=== PATIENT | male | born 1950 | race Caucasian/White ===

== ENCOUNTER 2018-09-06 13:28 | Observation (INO) ==
[2018-09-06 14:05] LABS: Basophils % 0.7 % (0.0-0.8); Eosinophils % 0.5 % (0.00-10.9); Hematocrit 38.1 VOL% (42.0-52.0); Hemoglobin 12.1 GM/DL (14.0-18.0); Immature Granulocytes % 0.2 %; Immature Granulocytes Absolute 0.01 #; Lymphocytes % 22.6 % (21.2-54.2); Mean Corpuscular HGB Conc 31.8 GM/DL (32-36); Mean Corpuscular Hemoglobin 28 PG (27-34); Mean Corpuscular Volume 88.8 FL (87-102); Mean Platelet Volume 11.1 FL (9.6-12.0); Monocytes # 0.5 10*3/uL (0.11-0.8); Monocytes % 10.5 % (1.7-12.7); Neutrophils # 2.9 10*3/uL (1.4-7.4); Neutrophils % 65.5 % (38.7-73.9); Platelet Count 65 T/CUMM (130-400); Red Blood Count 4.29 MC/CUMM (3.8-5.5); Red Cell Distribution Width 15.5 % (9.3-17.3); White Blood Count 4.4 T/CUMM (4-12)
[2018-09-06 14:27] LABS: Albumin 3.7 G/DL (3.4-5.0); Bilirubin,Total 0.5 MG/DL (0.2-1.0); Osmolality,Calculated 289.4 MOS/KG (273-304); Potassium 4.2 MMOL/L (3.5-5.1); Total Protein 8.2 G/DL (6.4-8.3)
[2018-09-06 14:44] LABS: Giant Platelets Few
[2018-09-06 14:45] LABS: Platelet Estimate Decreased
[2018-09-06 15:04] LABS: Apearance,Urine CLEAR (Clear); Bilirubin,Urine Negative (Negative); Blood, Urine Negative (Negative); Glucose,Urine (UA) >=500 mg/dL (Negative); Ketones,Urine Negative (Negative); Mucus,Urine Occasional /LPF (Occasional); Nitrite,Urine Negative (Negative); Protein,Urine 100 MG/DL; RBC,Urine <1 /HPF (0-4); Urine Color Yellow (Yellow); Urine Specific Gravity 1.018 (1.001-1.035); Urine Urobilinogen < 2.0 EU/DL (0.2-1.0); WBC,Urine <1 /HPF (0-6)
[2018-09-06] MEDS ORDERED: SODIUM CHLORIDE 0.9% 1,000 ML IV STA (15:35)
[2018-09-06] MEDS ORDERED: ONDANSETRON 4 MG/2 ML VIAL IV STA (15:35)
[2018-09-06] MEDS ORDERED: MORPHINE 4 MG/1 ML VIAL IV STA (15:35)
[2018-09-06] MEDS ORDERED: MORPHINE 4 MG/1 ML VIAL ONE (16:23)
[2018-09-06] MEDS ORDERED: ONDANSETRON 4 MG/2 ML VIAL ONE (16:23)
[2018-09-06] MEDS ORDERED: NALOXONE 0.4 MG/ML VIAL IV PRN (17:26)
[2018-09-06] MEDS ORDERED: ONDANSETRON 4 MG/2 ML VIAL IV PRN (17:26)
[2018-09-06] MEDS ORDERED: GLUCAGON 1 MG VIAL IM PRN (17:26)
[2018-09-06] MEDS ORDERED: DEXTROSE 50% 25 GM/50 ML VIAL IV PRN (17:26)
[2018-09-06] MEDS ORDERED: ACETAMINOPHEN 325 MG TABLET PO PRN (17:26)
[2018-09-06] MEDS ORDERED: KETOROLAC 30 MG/1 ML VIAL IV PRN (17:26)
[2018-09-06] MEDS ORDERED: BISACODYL 5 MG TABLET PO PRN (17:26)
[2018-09-06] MEDS ORDERED: oxyCODONE/ACETAMINOPHEN 5-325 MG TABLET PO PRN (17:26)
[2018-09-06] MEDS: DOCUSATE SODIUM 100 MG CAPSULE PO SCH (20:27)
[2018-09-06] MEDS: HYDROmorphone 2 MG/1 ML VIAL IV PRN (20:39)
[2018-09-06] MEDS: INSULIN REGULAR 100 UNIT/ML SUBCUT SCH (20:39)
[2018-09-06] MEDS ORDERED: LACTULOSE 20 GM/30 ML UDCUP PO PRN (23:48)
[2018-09-07] MEDS: SODIUM CHLORIDE 0.9% 1,000 ML IV SCH ×2 (00:28→13:45)
[2018-09-07 05:19] LABS: Basophils % 0.5 % (0.0-0.8); Eosinophils % 0.8 % (0.00-10.9); Hematocrit 33.5 VOL% (42.0-52.0); Hemoglobin 10.5 GM/DL (14.0-18.0); Lymphocytes # 1.3 10*3/uL (1.4-4.0); Lymphocytes % 34.5 % (21.2-54.2); Mean Corpuscular HGB Conc 31.3 GM/DL (32-36); Mean Corpuscular Hemoglobin 28 PG (27-34); Mean Corpuscular Volume 90.3 FL (87-102); Mean Platelet Volume 12.5 FL (9.6-12.0); Monocytes # 0.4 10*3/uL (0.11-0.8); Monocytes % 10.9 % (1.7-12.7); Neutrophils % 53.3 % (38.7-73.9); Platelet Count 57 T/CUMM (130-400); Red Blood Count 3.71 MC/CUMM (3.8-5.5); Red Cell Distribution Width 15.7 % (9.3-17.3); White Blood Count 3.8 T/CUMM (4-12)
[2018-09-07 05:40] LABS: Bilirubin,Total 0.6 MG/DL (0.2-1.0); Calcium 8.4 MG/DL (8.5-10.1); Osmolality,Calculated 286.1 MOS/KG (273-304); Potassium 3.9 MMOL/L (3.5-5.1); Total Protein 6.7 G/DL (6.4-8.3)
[2018-09-07 06:15] LABS: Band Neutrophils 2 % (0-10); Lymphocytes 34 % (20-55); Segmented Neutrophils 59 % (50-85); Total Cells Counted 100
[2018-09-07 06:16] LABS: Anisocytosis 1+; Ovalocytes 1+; Platelet Estimate Decreased
[2018-09-07] MEDS: glipiZIDE 5 MG TABLET PO SCH ×2 (08:46→17:16)
[2018-09-07] MEDS: DOCUSATE SODIUM 100 MG CAPSULE PO SCH ×2 (08:46→21:55)
[2018-09-07] MEDS: CHOLECALCIFEROL 1,000 UNIT TABLET PO SCH (08:46)
[2018-09-07] MEDS: SERTRALINE 50 MG TABLET PO SCH (08:47)
[2018-09-07] MEDS: PANTOPRAZOLE 40 MG TABLET PO SCH (08:47)
[2018-09-07] MEDS: CETIRIZINE 10 MG TABLET PO SCH (08:48)
[2018-09-07] MEDS: PROPRANOLOL LA 80 MG CAPSULE PO SCH (08:48)
[2018-09-07] MEDS: GABAPENTIN 100 MG CAPSULE PO SCH (08:48)
[2018-09-07] MEDS: ASPIRIN EC 81 MG TABLET PO SCH (08:48)
[2018-09-07] MEDS: INSULIN REGULAR 100 UNIT/ML SUBCUT SCH ×4 (08:49→21:56)
[2018-09-07] MEDS: MEMANTINE 10 MG TABLET PO SCH ×2 (08:50→21:55)
[2018-09-07] MEDS: MAGNESIUM OXIDE 400 MG TABLET PO SCH ×2 (13:44→21:55)
[2018-09-07] MEDS: LIDOCAINE 5% PATCH TRANSDERM SCH (13:44)
[2018-09-07] MEDS: HYDROmorphone 2 MG/1 ML VIAL IV PRN (20:23)
[2018-09-07] MEDS ORDERED: INSULIN GLARGINE 100 UNIT/ML SUBCUT SCH (21:00)
[2018-09-07] MEDS ORDERED: ATORVASTATIN 20 MG TABLET PO SCH (21:00)
[2018-09-07] MEDS ORDERED: DOXEPIN 10 MG CAPSULE PO SCH (21:00)
[2018-09-07] MEDS ORDERED: ORPHENADRINE PO SCH (21:00)
[2018-09-07] MEDS ORDERED: risperiDONE 0.25 MG TABLET PO SCH (21:00)
[2018-09-07] MEDS ORDERED: DONEPEZIL 10 MG TABLET PO SCH (21:00)
[2018-09-07] MEDS ORDERED: GABAPENTIN 300 MG CAPSULE PO SCH (21:00)
[2018-09-08] MEDS: SODIUM CHLORIDE 0.9% 1,000 ML IV SCH (03:09)
[2018-09-08] MEDS ORDERED: metFORMIN 500 MG TABLET PO SCH (08:00)
[2018-09-08] MEDS: CHOLECALCIFEROL 1,000 UNIT TABLET PO SCH (08:53)
[2018-09-08] MEDS: MAGNESIUM OXIDE 400 MG TABLET PO SCH (08:53)
[2018-09-08] MEDS: PROPRANOLOL LA 80 MG CAPSULE PO SCH (08:53)
[2018-09-08] MEDS: DOCUSATE SODIUM 100 MG CAPSULE PO SCH (08:53)
[2018-09-08] MEDS: CETIRIZINE 10 MG TABLET PO SCH (08:53)
[2018-09-08] MEDS: PANTOPRAZOLE 40 MG TABLET PO SCH (08:53)
[2018-09-08] MEDS: SERTRALINE 50 MG TABLET PO SCH (08:53)
[2018-09-08] MEDS: ASPIRIN EC 81 MG TABLET PO SCH (08:54)
[2018-09-08] MEDS: LIDOCAINE 5% PATCH TRANSDERM SCH (08:56)
[2018-09-08] MEDS: INSULIN REGULAR 100 UNIT/ML SUBCUT SCH ×2 (08:56→12:31)
[2018-09-08] MEDS: MEMANTINE 10 MG TABLET PO SCH (08:58)
[2018-09-08] MEDS: glipiZIDE 5 MG TABLET PO SCH (08:58)
[2018-09-08] MEDS: GABAPENTIN 100 MG CAPSULE PO SCH (08:58)
[2018-09-08 12:46] VITALS: BP 157/90
== END 2018-09-08 15:43 | disposition home or self-care (01) ==
LOC: N.ED 13:28 → N.EDINP 13:28 → N.5E 18:14
PROVIDERS: ADMIT Internal Medicine; ATTEND Internal Medicine

== ENCOUNTER 2019-12-15 14:42 | Inpatient (IN) ==
[2019-12-10 12:21] LABS: Basophils % 0.8 % (0.0-0.8); Eosinophils % 0.8 % (0.00-10.9); Hematocrit 33.3 VOL% (42.0-52.0); Hemoglobin 10.4 GM/DL (14.0-18.0); Lymphocytes # 0.8 10*3/uL (1.4-4.0); Lymphocytes % 33.7 % (21.2-54.2); Mean Corpuscular HGB Conc 31.2 GM/DL (32-36); Mean Corpuscular Volume 87.2 FL (87-102); Mean Platelet Volume 10.6 FL (9.6-12.0); Monocytes % 7.4 % (1.7-12.7); Neutrophils % 57.3 % (38.7-73.9); Platelet Count 53 T/CUMM (130-400); Red Blood Count 3.82 MC/CUMM (3.8-5.5); Red Cell Distribution Width 16.4 % (9.3-17.3); White Blood Count 2.4 T/CUMM (4-12)
[2019-12-10 12:39] LABS: Platelet Estimate Decreased
[2019-12-10 12:40] LABS: Anisocytosis 1+
[2019-12-10 13:00] LABS: Calcium 8.3 MG/DL (8.5-10.1); Osmolality,Calculated 289.7 MOS/KG (273-304)
[~2019-12-15 14:42] MED LIST: LACTATED RINGERS 1,000 ML IV SCH; ONDANSETRON 4 MG/2 ML VIAL IV PRN
[2019-12-15 15:33] LABS: Basophils % 0.7 % (0.0-0.8); Eosinophils % 0.7 % (0.00-10.9); Hematocrit 32.7 VOL% (42.0-52.0); Hemoglobin 10.2 GM/DL (14.0-18.0); Immature Granulocytes % 0.4 %; Immature Granulocytes Absolute 0.01 #; Lymphocytes # 1.1 10*3/uL (1.4-4.0); Lymphocytes % 39.3 % (21.2-54.2); Mean Corpuscular HGB Conc 31.2 GM/DL (32-36); Mean Corpuscular Volume 87.4 FL (87-102); Mean Platelet Volume 11.7 FL (9.6-12.0); Monocytes % 9.1 % (1.7-12.7); Neutrophils % 49.8 % (38.7-73.9); Platelet Count 53 T/CUMM (130-400); Red Blood Count 3.74 MC/CUMM (3.8-5.5); Red Cell Distribution Width 16.5 % (9.3-17.3); White Blood Count 2.8 T/CUMM (4-12)
[2019-12-15] MEDS ORDERED: FILGRASTIM-SNDZ 300 MCG/0.5 ML SYRINGE SUBCUT ONE (15:40)
[2019-12-15 15:55] LABS: Albumin 3.2 G/DL (3.4-5.0); Bilirubin,Total 0.6 MG/DL (0.2-1.0); Calcium 8.4 MG/DL (8.5-10.1); Osmolality,Calculated 284.7 MOS/KG (273-304); Total Protein 7.1 G/DL (6.4-8.3)
[2019-12-15 15:58] LABS: Ovalocytes Few; Platelet Estimate Decreased
[2019-12-15 15:59] LABS: Anisocytosis Slight; Hypochromasia Slight; Microcytosis Slight
[2019-12-15] MEDS ORDERED: SODIUM CHLORIDE 0.9% 1,000 ML IV PRN (16:02)
[2019-12-15] MEDS ORDERED: DEXTROSE 50% 25 GM/50 ML VIAL IV PRN (16:06)
[2019-12-15] MEDS ORDERED: GLUCAGON 1 MG VIAL IM PRN (16:06)
[2019-12-15] MEDS ORDERED: traZODone 50 MG TABLET PO PRN (16:08)
[2019-12-15] MEDS ORDERED: diphenhydrAMINE CAP 25 MG CAPSULE PO PRN (16:08)
[2019-12-15] MEDS ORDERED: guaiFENesin/DM ER 600-30 MG TABLET PO PRN (16:08)
[2019-12-15] MEDS ORDERED: PROMETHAZINE 25 MG/1 ML VIAL IM PRN (16:08)
[2019-12-15] MEDS ORDERED: NICOTINE 21 MG/24 HR PATCH TRANSDERM PRN (16:08)
[2019-12-15] MEDS ORDERED: ZALEPLON 5 MG CAPSULE PO PRN (16:08)
[2019-12-15] MEDS ORDERED: ACETAMINOPHEN 325 MG TABLET PO PRN (16:10)
[2019-12-15] MEDS: INSULIN GLARGINE 100 UNIT/ML SUBCUT SCH (16:51)
[2019-12-15] MEDS: INSULIN REGULAR 100 UNIT/ML SUBCUT SCH ×2 (17:33→20:49)
[2019-12-15] MEDS: glipiZIDE 10 MG TABLET PO SCH (17:35)
[2019-12-15] MEDS: cefTRIAXone 1,000 MG in SYRINGE 1 EACH IV SCH (17:37)
[2019-12-15 20:13] LABS: Apearance,Urine CLEAR (Clear); Bilirubin,Urine Negative (Negative); Blood, Urine Negative (Negative); Glucose,Urine (UA) >=500 mg/dL (Negative); Hyaline Casts,Urine 3 /LPF (0-3); Ketones,Urine Negative (Negative); Mucus,Urine Occasional /LPF (Occasional); Nitrite,Urine Negative (Negative); Protein,Urine Negative; RBC,Urine 1 /HPF (0-4); Urine Color Yellow (Yellow); Urine Specific Gravity 1.012 (1.001-1.035); Urine Urobilinogen < 2.0 EU/DL (0.2-1.0); WBC,Urine <1 /HPF (0-6)
[2019-12-15] MEDS: SODIUM BICARBONATE 650 MG TABLET PO SCH (20:47)
[2019-12-15] MEDS: risperiDONE 0.5 MG TABLET PO SCH (20:48)
[2019-12-15] MEDS: DONEPEZIL 10 MG TABLET PO SCH (20:49)
[2019-12-15] MEDS: COLESTIPOL 1 GM TABLET PO SCH (20:49)
[2019-12-15] MEDS: MEMANTINE 10 MG TABLET PO SCH (20:49)
[2019-12-15] MEDS: OMEGA 3 ACID ETHYL ESTERS 1 GM CAPSULE PO SCH (20:49)
[2019-12-15] MEDS ORDERED: NON-FORMULARY MEDICATION (Pantoprazole [Protonix] 40 MG) PO SCH (21:00)
[2019-12-16] MEDS: cefTRIAXone 1,000 MG in SYRINGE 1 EACH IV SCH (04:05)
[2019-12-16 05:29] LABS: Basophils % 0.5 % (0.0-0.8); Eosinophils % 0.3 % (0.00-10.9); Hematocrit 32.9 VOL% (42.0-52.0); Hemoglobin 10.2 GM/DL (14.0-18.0); Immature Granulocytes % 0.3 %; Immature Granulocytes Absolute 0.01 #; Lymphocytes # 0.7 10*3/uL (1.4-4.0); Lymphocytes % 19.6 % (21.2-54.2); Mean Corpuscular Volume 87.3 FL (87-102); Mean Platelet Volume 11.9 FL (9.6-12.0); Monocytes % 10.4 % (1.7-12.7); Neutrophils % 68.9 % (38.7-73.9); Platelet Count 56 T/CUMM (130-400); Red Blood Count 3.77 MC/CUMM (3.8-5.5); Red Cell Distribution Width 16.5 % (9.3-17.3); White Blood Count 3.7 T/CUMM (4-12)
[2019-12-16 05:54] LABS: Risk Ratio 4.26; VLDL CHOLESTEROL 42.2 MG/DL
[2019-12-16 05:55] LABS: Band Neutrophils 6 % (0-10); Eosinophils 1 % (0-10); Hypochromasia 1+; Lymphocytes 16 % (20-55); Microcytosis 1+; Ovalocytes Slight; Platelet Estimate Decreased; Segmented Neutrophils 72 % (50-85); Total Cells Counted 100
[2019-12-16 05:58] LABS: Alanine Aminotransferase 24 U/L (16-61); Albumin 3.1 G/DL (3.4-5.0); Alkaline Phosphatase 90 U/L (45-117); Aspartate Amino Transferase 31 U/L (0-37); Bilirubin,Total < 0.39 MG/DL (0.2-1.0); Blood Urea Nitrogen 14 MG/DL (7-18); Calcium 8.5 MG/DL (8.5-10.1); Estimated Glom Filtration Rate 69 ML/MIN; Glucose 115 MG/DL (74-106)
[2019-12-16] MEDS ORDERED: DEXAMETHASONE 4 MG/1 ML VIAL IV ONE (06:30)
[2019-12-16] MEDS ORDERED: FILGRASTIM-SNDZ 480 MCG/0.8 ML SYRINGE SUBCUT ONE (06:34)
[2019-12-16] MEDS ORDERED: LIDOCAINE 1%/EPI INJ 20 ML VIAL ONE (06:42)
[2019-12-16] MEDS ORDERED: SODIUM CHLORIDE 0.9% 1,000 ML IV PRN ×2 (07:12→07:13)
[2019-12-16] MEDS: INSULIN GLARGINE 100 UNIT/ML SUBCUT SCH ×2 (07:49→16:39)
[2019-12-16] MEDS: glipiZIDE 10 MG TABLET PO SCH ×2 (07:52→16:39)
[2019-12-16] MEDS ORDERED: NON-FORMULARY MEDICATION (Doxycycline Hyclate 100 MG) PO SCH (09:00)
[2019-12-16] MEDS ORDERED: ATORVASTATIN 40 MG TABLET PO SCH ×2 (09:00→11:26)
[2019-12-16] MEDS ORDERED: ALOGLIPTIN 12.5 MG PO SCH (09:00)
[2019-12-16] MEDS ORDERED: NON-FORMULARY MEDICATION (Cyanocobalamin (Vitamin B-12) 1,000 MCG) PO SCH (09:00)
[2019-12-16] MEDS ORDERED: ASPIRIN EC 81 MG TABLET PO SCH (09:00)
[2019-12-16 09:31] LABS: Apearance,Urine CLEAR (Clear); Bacteria,Urine Occasional /HPF (Few); Bilirubin,Urine Negative (Negative); Blood, Urine Negative (Negative); Glucose,Urine (UA) Negative (Negative); Ketones,Urine Negative (Negative); Mucus,Urine Occasional /LPF (Occasional); Nitrite,Urine Negative (Negative); Protein,Urine Negative; RBC,Urine 1 /HPF (0-4); Urine Color Yellow (Yellow); Urine Specific Gravity 1.011 (1.001-1.035); Urine Urobilinogen < 2.0 EU/DL (0.2-1.0); WBC,Urine <1 /HPF (0-6)
[2019-12-16] MEDS ORDERED: cefTRIAXone 1,000 MG VIAL ONE (09:52)
[2019-12-16] MEDS ORDERED: cefTRIAXone 2,000 MG in SYRINGE 1 EACH IV ONE (09:53)
[2019-12-16 10:27] LABS: Basophils # 0.1 10*3/uL (0.0-0.2); Basophils % 0.7 % (0.0-0.8); Eosinophils % 0.3 % (0.00-10.9); Hematocrit 30.9 VOL% (42.0-52.0); Hemoglobin 9.5 GM/DL (14.0-18.0); Immature Granulocytes % 0.8 %; Immature Granulocytes Absolute 0.06 #; Lymphocytes # 1.5 10*3/uL (1.4-4.0); Lymphocytes % 19.3 % (21.2-54.2); Mean Corpuscular HGB Conc 30.7 GM/DL (32-36); Mean Corpuscular Volume 87.5 FL (87-102); Mean Platelet Volume 10.5 FL (9.6-12.0); Monocytes % 8.6 % (1.7-12.7); Neutrophils % 70.3 % (38.7-73.9); Red Blood Count 3.53 MC/CUMM (3.8-5.5); Red Cell Distribution Width 16.8 % (9.3-17.3); White Blood Count 7.6 T/CUMM (4-12)
[2019-12-16 10:32] LABS: Platelet Count 75 T/CUMM (130-400)
[2019-12-16 10:46] LABS: Hypochromasia 1+; Microcytosis 1+; Ovalocytes Few
[2019-12-16 10:47] LABS: Platelet Estimate Decreased
[2019-12-16] MEDS ORDERED: propofoL 200 MG/20 ML VIAL IV ONE (13:27)
[2019-12-16] MEDS ORDERED: LIDOCAINE 2% 5 ML VIAL ONE (13:27)
[2019-12-16] MEDS ORDERED: MIDAZOLAM 2 MG/2 ML VIAL ONE (13:28)
[2019-12-16] MEDS ORDERED: fentaNYL 100 MCG/2 ML VIAL ONE (13:28)
[2019-12-16] MEDS ORDERED: KETAMINE 500 MG/10 ML VIAL ONE (13:28)
[2019-12-16] MEDS ORDERED: diphenhydrAMINE 50 MG/1 ML VIAL ONE (13:29)
[2019-12-16] MEDS ORDERED: LACTATED RINGERS 2,000 ML IV ONE (13:29)
[2019-12-16] MEDS ORDERED: PHENYLEPHRINE 10 MG/1 ML VIAL IV ONE (13:29)
[2019-12-16] MEDS ORDERED: ROCURONIUM 100 MG/10 ML VIAL IV ONE (13:29)
[2019-12-16] MEDS ORDERED: DEXAMETHASONE 4 MG/1 ML VIAL ONE (13:29)
[2019-12-16] MEDS ORDERED: SUCCINYLCHOLINE 200 MG/10 ML VIAL ONE (13:29)
[2019-12-16] MEDS ORDERED: SODIUM CHLORIDE 0.9% 250 ML IV ONE (13:29)
[2019-12-16] MEDS ORDERED: ONDANSETRON 4 MG/2 ML VIAL ONE (13:29)
[2019-12-16] MEDS ORDERED: NALOXONE 0.4 MG/ML VIAL IV PRN (14:48)
[2019-12-16] MEDS ORDERED: HYDROmorphone PCA 30 MG/30 ML SYRINGE IV SCH (15:00)
[2019-12-16] MEDS: INSULIN REGULAR 100 UNIT/ML SUBCUT SCH ×4 (15:16→21:37)
[2019-12-16] MEDS: TAMSULOSIN 0.4 MG CAPSULE PO SCH (15:17)
[2019-12-16] MEDS: COLESTIPOL 1 GM TABLET PO SCH ×2 (15:17→21:29)
[2019-12-16] MEDS: FINASTERIDE 5 MG TABLET PO SCH (15:18)
[2019-12-16] MEDS: PROPRANOLOL 40 MG TABLET PO SCH ×2 (15:18→21:29)
[2019-12-16] MEDS: MEMANTINE 10 MG TABLET PO SCH ×2 (15:18→21:32)
[2019-12-16] MEDS: CETIRIZINE 10 MG TABLET PO SCH (15:19)
[2019-12-16] MEDS: CHOLECALCIFEROL 1,000 UNIT TABLET PO SCH (15:19)
[2019-12-16] MEDS: SODIUM BICARBONATE 650 MG TABLET PO SCH ×2 (15:19→21:33)
[2019-12-16] MEDS: SERTRALINE 100 MG TABLET PO SCH (15:19)
[2019-12-16] MEDS: OMEGA 3 ACID ETHYL ESTERS 1 GM CAPSULE PO SCH ×2 (15:19→21:35)
[2019-12-16] MEDS: DEXAMETHASONE 4 MG/1 ML VIAL IV SCH ×2 (16:25→23:06)
[2019-12-16 18:45] VITALS: BP 140/80
[2019-12-16] MEDS: DONEPEZIL 10 MG TABLET PO SCH (21:28)
[2019-12-16] MEDS: risperiDONE 0.5 MG TABLET PO SCH (21:34)
[2019-12-16] MEDS: MINERAL OIL/PETROLATUM OPH OINT 3.5 GM TUBE BOTH EYES SCH ×2 (21:36→22:57)
[2019-12-16] MEDS: cefTRIAXone 2,000 MG in SYRINGE 1 EACH IV SCH (23:07)
[2019-12-17] MEDS: HYDROmorphone 2 MG/1 ML VIAL IV PRN ×2 (02:20→08:35)
[2019-12-17 05:57] LABS: Hematocrit 31.7 VOL% (42.0-52.0); Hemoglobin 9.7 GM/DL (14.0-18.0); White Blood Count 5.2 T/CUMM (4-12)
[2019-12-17 05:58] LABS: Basophils % 0.2 % (0.0-0.8); Immature Granulocytes Absolute 0.26 #; Lymphocytes # 0.7 10*3/uL (1.4-4.0); Mean Corpuscular HGB Conc 30.6 GM/DL (32-36); Mean Corpuscular Volume 88.1 FL (87-102); Mean Platelet Volume 11.7 FL (9.6-12.0); Monocytes % 5.4 % (1.7-12.7); Neutrophils % 75.4 % (38.7-73.9); Platelet Count 60 T/CUMM (130-400); Red Cell Distribution Width 16.5 % (9.3-17.3)
[2019-12-17 06:23] LABS: Band Neutrophils 5 % (0-10); Lymphocytes 9 % (20-55); Segmented Neutrophils 83 % (50-85); Total Cells Counted 100
[2019-12-17 06:23] LABS: Albumin 2.9 G/DL (3.4-5.0); Osmolality,Calculated 286.8 MOS/KG (273-304); Total Protein 6.8 G/DL (6.4-8.3)
[2019-12-17 06:24] LABS: Hypochromasia 1+; Microcytosis 1+; Ovalocytes Slight; Platelet Estimate Decreased
[2019-12-17] MEDS: DEXAMETHASONE 4 MG/1 ML VIAL IV SCH (07:01)
[2019-12-17] MEDS: PROPRANOLOL 40 MG TABLET PO SCH (08:20)
[2019-12-17] MEDS: CETIRIZINE 10 MG TABLET PO SCH (08:20)
[2019-12-17] MEDS: COLESTIPOL 1 GM TABLET PO SCH (08:20)
[2019-12-17] MEDS: SODIUM BICARBONATE 650 MG TABLET PO SCH (08:21)
[2019-12-17] MEDS: glipiZIDE 10 MG TABLET PO SCH (08:22)
[2019-12-17] MEDS: FINASTERIDE 5 MG TABLET PO SCH (08:23)
[2019-12-17] MEDS: CHOLECALCIFEROL 1,000 UNIT TABLET PO SCH (08:25)
[2019-12-17] MEDS: SERTRALINE 100 MG TABLET PO SCH (08:25)
[2019-12-17] MEDS: TAMSULOSIN 0.4 MG CAPSULE PO SCH (08:26)
[2019-12-17] MEDS: OMEGA 3 ACID ETHYL ESTERS 1 GM CAPSULE PO SCH (08:27)
[2019-12-17] MEDS: MEMANTINE 10 MG TABLET PO SCH (08:28)
[2019-12-17] MEDS: INSULIN REGULAR 100 UNIT/ML SUBCUT SCH ×2 (08:30→12:14)
[2019-12-17] MEDS: INSULIN GLARGINE 100 UNIT/ML SUBCUT SCH (08:31)
[2019-12-17] MEDS: cefTRIAXone 2,000 MG in SYRINGE 1 EACH IV SCH (09:21)
== END 2019-12-17 12:58 | disposition home or self-care (01) | DRG 139 ==
LOC: N.OR 14:42 → N.3E 14:42 → N.CC 12-16 14:04
PROVIDERS: ADMIT Otolaryngology; ATTEND Otolaryngology